=== PATIENT | male | born 1980 ===

== ENCOUNTER 2021-10-02 06:34 | Emergency (ER) | payer MEDICAID ==
[~2021-10-02] VITALS: Ht 175.3 cm; Wt 99.8 kg
[2021-10-02] MEDS ORDERED: HYDROcodone-ACET 10/325MG TAB PO ONE (07:30)
[2021-10-02] MEDS ORDERED: IBU600T PO (09:51)
[2021-10-02 10:01] VITALS: BP 96/52
== END 2021-10-02 10:28 | disposition home or self-care (01) ==
LOC: ER 06:34
DX: S33.5XXA Sprain of ligaments of lumbar spine, initial encounter (principal); I10 Essential (primary) hypertension; F17.210 Nicotine dependence, cigarettes, uncomplicated; F12.10 Cannabis abuse, uncomplicated; W18.00XA Striking against unspecified object with subsequent fall, initial encounter; Y93.89 Activity, other specified; Y92.89 Other specified places as the place of occurrence of the external cause; Y99.8 Other external cause status
CPT/HCPCS: 72131